=== PATIENT | female | born 1985 | race Caucasian/White ===

== ENCOUNTER 2021-08-14 10:21 | Emergency (ER) | payer OTHER, SELFPAY ==
[2021-08-14 11:01] VITALS: BP 122/77; PULSE 99; RESP 18; TEMP 36.8; O2SAT 100
--- NOTE | 2021-08-14 11:24 | ED.URI ---
HPI - URI/Sore Throat General Chief Complaint: Upper Respiratory Infection Stated Complaint: Cough,Sinus Time Seen by Provider: 08/14/21 11:20 Source: patient and RN notes reviewed Mode of arrival: ambulatory Limitations: no limitations History of Present Illness HPI Narrative: 36-year-old female with history of cigarette smoking presents with concern for 2-week history of cough, chest congestion. Reports symptoms started 2 weeks ago with sinus congestion and drainage, which has resolved however she now has a persistent cough. She reports taking multiple [id number] medications with no relief. Reports she has been vaccinated for Covid. 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 Related Data Home Medications Medication Instructions Recorded Confirmed No Home Medications 08/14/21 08/14/21 Allergies Allergy/AdvReac Type Severity Reaction Status Date / Time codeine AdvReac Intermediate VOMITING Verified 08/14/21 11:13 Review of Systems Review of Systems: CONSTITUTIONAL: Denies malaise, chills, sweats, or fever. EYES: Denies visual changes, redness, or discharge. ENT: Reports history of rhinorrhea, congestion. Denies sinus pain, otalgia and sore throat. CARDIOVASCULAR: Denies chest pain, palpitations, or edema. RESPIRATORY: Reports persistent cough, chest congestion. Denies dyspnea. GASTROINTESTINAL: Denies abdominal pain, nausea, vomiting, diarrhea SKIN: Denies rash or itching. MUSCULOSKELETAL: Denies myalgia. NEUROLOGIC: Denies headache. All systems reviewed & are unremarkable except as noted in HPI and below PMFSH Comments At time of signature, agree with nursing past medical, surgical, social and family history. There is no relevant family history pertinent to the presenting complaint Exam Narrative: GENERAL: Well-appearing, well-nourished, and in no acute distress. HEAD: Normocephalic EYES: PERRLA, conjunctivae clear ENT: Nares clear. Mucous membranes moist. TM pearly coelho with sharp light reflex bilaterally; no tragal tenderness. Oropharynx not erythematous without lesions. Tonsils not enlarged and without exudate, no drooling, no hoarseness, no trismus, uvula midline. NECK: Supple. No lymphadenopathy CHEST: Clear to auscultation, breath sounds equal. No wheezing, rhonchi, rales, or stridor. No respiratory distress, speaks in full sentences. Cough noted HEART: Regular rate and rhythm. No murmur heard. SKIN: Warm, dry, no rash. NEURO: Alert and oriented x3. PSYCH: Normal mood and affect Course Course Emergency Course: Patient is aware of diagnosis, understands and agrees to treatment plan. Anticipatory guidance given. Patient agrees to follow-up as directed and is aware of reasons to seek care at the emergency department. Portions of this record may have been created with voice recognition software Vital Signs Vital signs: Vital Signs Temperature 98.2 F 08/14/21 11:01 Pulse Rate 99 08/14/21 11:01 Respiratory Rate 18 08/14/21 11:01 Blood Pressure 122/77 08/14/21 11:01 Pulse Oximetry 100 08/14/21 11:01 Temperature 98.2 F 08/14/21 11:01 Pulse Rate 99 08/14/21 11:01 Respiratory Rate 18 08/14/21 11:01 Blood Pressure 122/77 08/14/21 11:01 Pulse Oximetry 100 08/14/21 11:01 Reviewed. MDM - URI/Sore Throat MDM Narrative Medical decision making narrative: Differential diagnosis considered: Valenzuela virus, strep pharyngitis, allergic rhinitis, upper respiratory tract infection, sinusitis, rhinosinusitis, nasopharyngitis. viral pharyngitis, otitis media, otitis externa, pneumonia, bronchitis, viral cough syndrome, viral syndrome, and influenza. Exam findings show no acute concerns or changes; patient is non-toxic appearing and is in no distress. Patient is appropriate for outpatient treatment and follow-up. Critical Care Time Critical Care Time Critical Care Time: No Discharge Plan Discharge Clinical Impression: Bronchitis, Cigarette smoker Patient Disposition: Home, Self-Care
== END 2021-08-14 11:48 | disposition home or self-care (01) ==
PROVIDERS: Emergency Provider Nurse Practitioner
DX: J40 Bronchitis, not specified as acute or chronic (principal); F17.210 Nicotine dependence, cigarettes, uncomplicated
CPT/HCPCS: 99213; G0463

== ENCOUNTER 2021-09-30 05:12 | Emergency (ER) | payer OTHER, SELFPAY ==
[2021-09-30 05:16] VITALS: BP 132/87; PULSE 106; RESP 17; TEMP 36.4; O2SAT 100
--- NOTE | 2021-09-30 06:17 | ED.GENADULT ---
HPI - General Adult General Chief complaint: Dental/Oral Stated complaint: right lower toothache Time Seen by Provider: 09/30/21 06:10 History of Present Illness HPI narrative: Patient 36-year-old female presents emerged from with chief complaint of right-sided mandible pain. 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 Patient states the pain is worse with movement and improved with rest. Related Data Allergies Allergy/AdvReac Type Severity Reaction Status Date / Time codeine AdvReac Intermediate VOMITING Verified 09/30/21 05:27 Review of Systems Review of Systems: A 10 system review of systems was completed on the patient and is negative except for what is stated in the HPI. Nursing and ancillary documentation was reviewed. Exam Narrative: GENERAL: Well-appearing, well-nourished, and in no acute distress. HEAD: Normocephalic, atraumatic. EYES: PERRLA and EOMI. ENT: Nares clear, no rhinorrhea or epistaxis. Mucous membranes moist. There is gross dental decay present and tenderness to palpation in the mandible region of the mouth on the right side NECK: Supple. CHEST: Clear to auscultation. No respiratory distress. HEART: Regular rate and rhythm. No murmur heard. Normal peripheral pulses. ABDOMEN: Soft, nontender, nondistended, normal active bowel sounds. EXTREMITIES: Normal range of motion. No edema. SKIN: Warm, dry, no rash. NEURO: No focal deficits. Alert and oriented x3. PSYCH: Normal mood and affect. Course Vital Signs Vital signs: Vital Signs Temperature 36.4 C 09/30/21 05:16 Pulse Rate 106 H 09/30/21 05:16 Respiratory Rate 17 09/30/21 05:16 Blood Pressure 132/87 09/30/21 05:16 Pulse Oximetry 100 09/30/21 05:16 Temperature 36.4 C 09/30/21 05:16 Pulse Rate 106 H 09/30/21 05:16 Respiratory Rate 17 09/30/21 05:16 Blood Pressure 132/87 09/30/21 05:16 Pulse Oximetry 100 09/30/21 05:16 Medical Decision Making Vital Signs Vital Signs: Vital Signs Temperature 36.4 C 09/30/21 05:16 Pulse Rate 106 H 09/30/21 05:16 Respiratory Rate 17 09/30/21 05:16 Blood Pressure 132/87 09/30/21 05:16 Pulse Oximetry 100 09/30/21 05:16 Temperature 36.4 C 09/30/21 05:16 Pulse Rate 106 H 09/30/21 05:16 Respiratory Rate 17 09/30/21 05:16 Blood Pressure 132/87 09/30/21 05:16 Pulse Oximetry 100 09/30/21 05:16 Discharge Plan Discharge Clinical Impression: Dental abscess Patient Disposition: Home, Self-Care Condition: Stable Instructions: Antibiotic Form, Dental Abscess (ED), Toothache (ED) Prescriptions: New amoxicillin 500 mg capsule 500 mg PO Q12H 10 Days Qty: 20 RF: 0 No Action azithromycin [Zithromax Z-Truong] 250 mg tablet See Rx Instructions .ROUTE .COMPLEX Qty: 6 RF: 0 benzonatate 200 mg capsule 200 mg PO TID PRN (Reason: cough) Qty: 14 RF: 0 prednisone 20 mg tablet 40 mg PO DAILY 5 Days Qty: 10 RF: 0 Follow-up/Referrals: PHYSICIAN,MECHANICAL SYSTEMS ENGINEER [Primary Care Provider] - Librado Grimm MD [Physician] - Stand Alone Forms: Work/School Release IP Time of Disposition: 06:20
[2021-09-30] MEDS: HYDROcodone/acetaminophen (*CRX) 5-325 MG TABLET 1 TAB PO (06:31)
[2021-09-30] MEDS: ONDANSETRON HCL ODT 4 MG TABLET PO (06:37)
[2021-09-30 06:39] VITALS: BP 135/91; PULSE 94; RESP 16; O2SAT 100
== END 2021-09-30 06:51 | disposition home or self-care (01) ==
PROVIDERS: Emergency Provider Emergency Medicine
DX: K04.7 Periapical abscess without sinus (principal)
CPT/HCPCS: 99283; A9270

== ENCOUNTER 2024-06-02 17:22 | Emergency (ER) | payer OTHER, SELFPAY ==
[2024-06-02 17:39] VITALS: BP 120/81; PULSE 98; RESP 16; TEMP 36.9; O2SAT 98
--- NOTE | 2024-06-02 17:48 | ED.GENADULT ---
HPI - General Adult General Chief complaint: Extremity Problem,Nontraumatic Stated complaint: Bilateral arm pit pain Time Seen by Provider: 06/02/24 17:48 Source: patient, RN notes reviewed and old records reviewed Mode of arrival: ambulatory Limitations: no limitations History of Present Illness HPI narrative: 38-year-old female presents to the [facility] with bilateral axilla for several days. Patient reports that she changed her underarm deodorant. Does shave days has not shaved since the thumbs and swelling started. Generalized erythema is not noted Related Data Home Medications Medication Instructions Recorded Confirmed levonorgestrel 21 mcg/24 hr (up to 1 device intrauterine ONCE 06/02/24 06/02/24 8 years) 52 mg intrauterine device (Mirena) Allergies Allergy/AdvReac Type Severity Reaction Status Date / Time codeine AdvReac Intermediate VOMITING Verified 06/02/24 17:39 Review of Systems Review of Systems: All systems reviewed & are unremarkable except as noted in HPI and below Constitutional: Constitutional: Reports no additional constitutional complaints Eyes: Eyes: Reports no additional eye complaints ENT: Reports system reviewed and no additional complaints, except as documented Cardiovascular: Cardiovascular: Reports no additional cardiovascular complaints, Denies chest pain and Denies dyspnea Respiratory: Respiratory: Reports no additional respiratory complaints, Denies chest congestion, Denies cough and Denies dyspnea Gastrointestinal: Gastrointestinal: Reports no additional gastrointestinal complaints, Denies abdominal pain, Denies nausea and Denies vomiting Musculoskeletal: Musculoskeletal: Reports no additional musculoskeletal complaints Integumentary/Breasts: Skin/Breast: Reports as per HPI Neurologic: Reports system reviewed and no additional complaints, except as documented Psychiatric: Psychiatric: Reports no additional psychiatric complaints Allergic/Immunologic: Allergic/Immunologic: Reports no additional allergic/immunologic complaints PMFSH Comments At the time of my signature, I reviewed and agree with the nursing past medical, surgical, social, and family history. There is no relevant family history pertinent to the patient complaint. Exam Const: General: cooperative, healthy appearing, comfortable, no acute distress, well developed, alert and well nourished Nutritional Appearance: well nourished Orientation/consciousness: patient oriented x3 Limitations: no limitations HENMT: Head: normal to inspection Ears: hearing grossly normal bilaterally and external ears normal Face/Nose/Sinus: Normal external nose present, Normal nares present, Normal nasal mucous membranes and turbinates present, normal facial exam and face symmetric Face and sinus: normal facial exam and face symmetric Mouth: Yes lip normal and Yes tongue normal Teeth and gingiva: poor dentition Eyes: General: appearance normal, both eyes and all related structures Alignment and Position: alignment normal Periorbital: periorbital findings normal Neck: Neck: normal visual inspection, full ROM, no lymphadenopathy and no meningeal signs Chest: Chest palpation & inspection: normal inspection of the chest Resp: Effort & Inspection: normal respiratory effort and able to speak in complete sentences Auscultation: clear to auscultation bilaterally, no crackles, no rales, no rhonchi and no wheezes Cardio: Rate: regular rate Rhythm: regular rhythm Skin: General skin exam: normal color and no rashes or lesions noted Lesions: no lesions Rashes: no rashes Trauma: no lacerations or abrasions Wounds: no wounds Other: Bilateral axillas with lymphadenopathy, follicular irritation, erythema and mild swelling. Neuro: General: patient oriented x3, gait normal, tone normal, moves all extremities and no meningeal signs Cranial nerves: Yes Equal, round and reactive pupils present Cognition (Neuro): normal cognition Spe
== END 2024-06-02 18:10 | disposition home or self-care (01) ==
PROVIDERS: Emergency Provider Nurse Practitioner
DX: L73.9 Follicular disorder, unspecified (principal); Z86.16 Personal history of COVID-19
CPT/HCPCS: 99213; G0463